=== PATIENT | female | born 1985 | race African-American/Black ===

== ENCOUNTER 2017-05-15 23:51 | Emergency (ER) | payer OTHER ==
[2017-05-16] MEDS ORDERED: PHENERGAN INJ 25 MG IM ONE (00:10)
--- NOTE | 2017-05-16 00:13 | DR.GENAD ---
HPI - PCP Primary Care Physician: nfd - Complaint/Symptoms Chief Complaint Doctors Comments: Nausea with vomitting, dairrhear x 2 days. No fever or chills. She had eaten some teresa claw on the morning of onset of her symptoms. She denies recent travel outside of this general area. Chief Complaint:: n/v/d - Nurses notes reviewed Nurses Notes Review: Yes - Source History Provided: Patient - Mode of Arrival Mode of Arrival: Ambulatory - Timing Onset of Chief Complaint: 05/15/17 PMH - PMH Past Medical History: Yes Past Medical History: Hypertension Past Surgical History: Yes Surgical History: - Family History History of Family Medical Conditions: Yes Family Medical History: Diabetes Mellitus, Cancer, [place], Hypertension - Social History Does patient currently use any type of tobacco product: Yes Have you used tobacco products in the last 12 months: Yes Type of Tobacco Use: Cigarettes Does any household member use tobacco: Yes Alcohol Use: None Do you use any recreational Drugs:: No Lives With: Family Lives Where: Home - infectious screening In the last 2 months have you had wt loss of >10#?: NO Have you had fever, night sweats or hemotysis?: No Have you traveled outside the country in the last 6 months?: No Isolation: Standard ROS - Review of Systems Constitutional: No Symptoms Reported Eyes: No Symptoms Reported ENTM: No Symptoms Reported Respiratoy: No Symptoms Reported Cardiovascular: No Symptoms Reported Gastrointestinal/Abdominal: Abdominal Pain (cramps in epigastric area), Diarrhea , Nausea, Vomiting Neurological: No Symptoms Reported Musculoskeletal: No Symptoms Reported Integumentary: No Symptoms Reported Hematologic/Lymphatic: No Symptoms Reported Endocrine: No Symptoms Reported Psychiatric: No Symptoms Reported PE - Vital Signs Vitals: Temperature 97.8 F Pulse Rate 109 Respiratory Rate 16 Blood Pressure [Right Arm] 153/87 Blood Pressure [Left Arm] 179/86 Blood Pressure 145/81 O2 Sat by Pulse Oximetry 97 - General Limitations: No Limitations General Appearance: Alert, In No Apparent Distress - Head Head Exam: Normal Inspection - Eyes Eye exam: Normal Appearance - ENT ENT Exam: Normal Exam - Neck Neck Exam: Normal Inspection - Chest Chest Inspection: Normal Inspection - Respiratory Respiratory Exam: Normal Lung Sounds Bilat - Cardiovascular Cardiovascular Exam: Regular Rate, Normal Rhythm - Abdominal Exam Abdominal Exam: Normal Inspection, Normal Bowel Sounds, Soft, Other (obese) - Extremities Extremities Exam: Normal Inspection - Back Back Exam: Normal Inspection - Neurologic Neurological Exam: Alert, Oriented X3 - Psychiatric Psychiatric Exam: Normal Affect, Normal Mood - Skin Skin Exam: Warm, Dry, Intact, Normal Color Course - Reevaluation 1st: Improved - Education/Counseling Education/Counseling: Patient, Family, Education Educated On: Treatment, Diagnosis, Prognosis, Needs for Follow Up ROR - Labs Reviewed Result Diagrams: 05/16/17 00:23 05/16/17 00:23 Laboratory: WBC 9.8 X10^3/uL (3.6-10.0) 05/16/17 00:23 RBC 5.02 X10^6/uL (3.5-5.4) 05/16/17 00:23 Hgb 12.5 g/dL (12.0-16.0) 05/16/17 00: Hct 38.6 % (36.0-47.0) 05/16/17 00:23 MCV 76.8 fL (80.0-100.0) L 05/16/17 00: MCH 24.9 pg (27.0-34.0) L 05/16/17 00:23 MCHC 32.4 g/dL (33.0-35.0) L 05/16/17 00:23 RDW 16.7 % (11.6-16.5) H 05/16/17 00:23 Plt Count 344 X10^3/uL (150.0-450.0) 05/16/17 00: Plt Count Comment Adequate (ADEQUATE) 05/16/17 00: MPV 7.7 fL (7.4-11.0) 05/16/17 00: Neut % 76.0 % (42.0-75.0) H 05/16/17 00:23 Lymph % 18.4 % (21.0-51.0) L 05/16/17 00:23 [place] % 5.0 % (0.0-13.0) 05/16/17 00: Eos % 0.2 % (0.9-2.9) L 05/16/17 00:23 Baso % 0.4 % (0.2-1.0) 05/16/17 00: Neut # 7.5 x10^3/uL (2.2-4.8) H 05/16/17 00:23 Lymph # 1.8 X10^3/uL (1.3-2.9) 05/16/17 00:23 [place] # 0.5 x10^3/uL (0.3-0.8) 05/16/17 00:23 Eos # 0.0 x10^3/uL (0.0-0.2) 05/16/17 00:23 Baso # 0.0 X10^3/uL (0.0-0.1) 05/16/17 00:23 Absolute Nucleated RBC 0.1 /100WBC 05/16/17 00:23 Plt Morphology Comment Normal (NORMAL) 05/16/17 00: RBC Morphology Normal (NORMAL) 05/16/17 00:23 Sodium 137 mmol/L (136-145) 05/16/17 00:23 Corrected Sodium TNP 05/16/17 00:23 Potassium 3.7 mmol/L (3.5-5.1) 05/16/17 00: Chloride 102 mmol/L (98-107) 05/16/17 00: Carbon Dioxide 24.2 mmol/L (21-32) 05/16/17 00:23 BUN 11 mg/dL (7-18) 05/16/17 00:23 Creatinine 0.83 mg/dL (0.55-1.02) 05/16/17 00:23 Est GFR (MDRD) Af Amer > 60 (>60) 05/16/17 00:23 Est GFR (MDRD) Non-Af > 60 (>60) 05/16/17 00:23 Glucose 100 mg/dL (65-99) H 05/16/17 00:23 Calcium 8.7 mg/dL (8.5-10.1) 05/16/17 00:23 Corrected Calcium TNP 05/16/17 00:23 Total Bilirubin 0.20 mg/dL (0.2-1.0) 05/16/17 00:23 AST 21 Units/L (15-37) 05/16/17 00:23 ALT 24 Units/L (12-78) 05/16/17 00:23 Alkaline Phosphatase 47 Units/L (46-116) 05/16/17 00:23 Total Protein 8.3 g/dL (6.4-8.2) H 05/16/17 00:23 Albumin 4.0 g/dL (3.4-5.0) 05/16/17 00:23 Globulin 4.3 g/dL (2.5-4.5) 05/16/17 00:23 Albumin/Globulin Ratio 0.9 Ratio (1.1-2.1) L 05/16/17 00:23 - Diagnosis Discharge Problem: Gastroenteritis - Discharge Plan Disposition: 01 HOME, SELF-CARE Condition: Stable - Follow ups/Referrals Follow ups/Referrals: NFD,None [Primary Care Provider] - 3 days - Instructions
[2017-05-16 00:15] VITALS: BP 145/81; BMI 53.2
[2017-05-16] MEDS ORDERED: PHENERGAN INJ 25 MG ONE (00:18)
[2017-05-16 00:39] LABS: BASOPHILS % (AUTO) 0.4 % (0.2-1.0); EOSINOPHILS % (AUTO) 0.2 % (0.9-2.9); HEMATOCRIT 38.6 % (36.0-47.0); HEMOGLOBIN 12.5 g/dL (12.0-16.0); LYMPHOCYTES # (AUTO) 1.8 X10^3/uL (1.3-2.9); LYMPHOCYTES % (AUTO) 18.4 % (21.0-51.0); MEAN CORPUSCULAR HEMOGLOBIN 24.9 pg (27.0-34.0); MEAN CORPUSCULAR HGB CONC 32.4 g/dL (33.0-35.0); MEAN CORPUSCULAR VOLUME 76.8 fL (80.0-100.0); MEAN PLATELET VOLUME 7.7 fL (7.4-11.0); MONOCYTES # (AUTO) 0.5 x10^3/uL (0.3-0.8); NEUTROPHILS # (AUTO) 7.5 x10^3/uL (2.2-4.8); PLATELET COUNT 344 X10^3/uL (150.0-450.0); RED BLOOD COUNT 5.02 X10^6/uL (3.5-5.4); RED CELL DISTRIBUTION WIDTH 16.7 % (11.6-16.5); WHITE BLOOD COUNT 9.8 X10^3/uL (3.6-10.0)
[2017-05-16 00:46] LABS: ALANINE AMINOTRANSFERASE 24 Units/L (12-78); ALKALINE PHOSPHATASE 47 Units/L (46-116); ASPARTATE AMINO TRANSFERASE 21 Units/L (15-37); BLOOD UREA NITROGEN 11 mg/dL (7-18); CALCIUM 8.7 mg/dL (8.5-10.1); CARBON DIOXIDE 24.2 mmol/L (21-32); CHLORIDE 102 mmol/L (98-107); CREATININE 0.83 mg/dL (0.55-1.02); SODIUM 137 mmol/L (136-145); TOTAL PROTEIN 8.3 g/dL (6.4-8.2); eGFR BLACK RACES > 60 (>60); eGFR NON BLACK RACES > 60 (>60)
[2017-05-16 00:58] LABS: PLATELET MORPHOLOGY COMMENT NORMAL (NORMAL)
== END 2017-05-16 01:20 | disposition home or self-care (01) ==
LOC: ER 23:51
DX: K52.89 Other specified noninfective gastroenteritis and colitis (principal)
CPT/HCPCS: 36415; 80053; 85025; 96372; 99282; 99283; J2550

== ENCOUNTER 2018-08-12 06:11 | Inpatient (IN) ==
[2018-08-12] MEDS ORDERED: ANCEF VIAL 1 GRAM IVP ONE (06:36)
[2018-08-12] MEDS ORDERED: D5 1/2 NS 1000 ML 1,000 ML IV SCH (06:36)
[2018-08-12] MEDS ORDERED: ANCEF 1 GRAM IV PREMIX* 1 G/50 ML BAG IV ONE ×2 (06:48→06:57)
[2018-08-12] MEDS ORDERED: LR 1000 ML IV 1,000 ML ONE (06:57)
[2018-08-12 07:09] LABS: URIC ACID 3.8 mg/dL (2.6-6.0)
[2018-08-12] MEDS ORDERED: DILAUDID INJ ONE (07:12)
[2018-08-12] MEDS ORDERED: MARCAINE SPINAL ONE ×2 (07:24→15:36)
[2018-08-12] MEDS ORDERED: D5 1/2 NS 1L W PITOCIN 20 UNITS/L 20 UNITS/1,000 ML BAG IV ONE (07:33)
[2018-08-12] MEDS ORDERED: NS 1000 ML 1,000 ML ONE ×2 (07:48→09:20)
[2018-08-12] MEDS ORDERED: FENTANYL INJ 100 mcg ONE ×2 (08:19→08:20)
[2018-08-12] MEDS ORDERED: NEO-SYNEPHRINE INJ IVP ONE (10:02)
[2018-08-12] MEDS ORDERED: MYLICON TAB 80 MG CHEW PO PRN (10:34)
[2018-08-12] MEDS ORDERED: ADACEL or BOOSTRIX TDaP VACCINE IM ONE (10:34)
[2018-08-12] MEDS ORDERED: BENADRYL INJ 50 MG VIAL IVP PRN ×2 (10:34→10:41)
[2018-08-12] MEDS ORDERED: NARCAN INJ IVP PRN (10:34)
[2018-08-12] MEDS ORDERED: D5 1/2 NS 1000 ML 1,000 ML with PITOCIN 20 UNITS IV SCH ×2 (10:34)
[2018-08-12] MEDS ORDERED: PERCOCET TAB 5/325 MG PO PRN (10:34)
[2018-08-12] MEDS ORDERED: REGLAN INJ 10 MG VIAL IVP PRN ×2 (10:34→10:41)
[2018-08-12] MEDS ORDERED: DILAUDID INJ IVP PRN (10:41)
[2018-08-12] MEDS ORDERED: ZOFRAN INJ 4 MG VIAL IVP PRN (10:41)
[2018-08-12] MEDS ORDERED: PHENERGAN INJ 25 MG IM PRN (10:41)
[2018-08-12 10:51] LABS: HEMATOCRIT 23.3 % (36.0-47.0); HEMOGLOBIN 7.4 g/dL (12.0-16.0)
[2018-08-12] MEDS: TORADOL 30 MG VIAL IVP PRN ×2 (12:37→23:09)
[2018-08-12] MEDS: ZOFRAN INJ 4 MG VIAL IVP PRN ×2 (12:46→23:09)
[2018-08-12] MEDS ORDERED: ZOFRAN INJ 4 MG VIAL ONE (15:36)
[2018-08-12] MEDS ORDERED: DIPRIVAN VIAL ONE (15:36)
[2018-08-12] MEDS ORDERED: PITOCIN ONE (15:36)
[2018-08-12] MEDS ORDERED: ULTANE GAS ONE (15:36)
[2018-08-12] MEDS ORDERED: XYLOCAINE 1 % (PLAIN) ONE (15:36)
[2018-08-12] MEDS ORDERED: NEO-SYNEPHRINE INJ ONE (15:36)
[2018-08-12] MEDS ORDERED: VERSED ONE (15:36)
[2018-08-12 16:35] LABS: HEMATOCRIT 23.1 % (36.0-47.0); HEMOGLOBIN 7.3 g/dL (12.0-16.0)
[2018-08-12] MEDS: ZANTAC PO SCH (20:11)
[2018-08-12] MEDS ORDERED: NORMODYNE TAB 200 MG PO SCH (21:00)
[2018-08-13 05:26] LABS: HEMATOCRIT 20.2 % (36.0-47.0)
[2018-08-13 05:45] LABS: HEMOGLOBIN 6.4 g/dL (12.0-16.0)
[2018-08-13] MEDS: TORADOL 30 MG VIAL IVP PRN (05:58)
[2018-08-13] MEDS ORDERED: BENADRYL INJ 50 MG VIAL IVP ONE (08:01)
[2018-08-13] MEDS ORDERED: TYLENOL 325 MG TAB PO ONE ×2 (08:02→12:24)
[2018-08-13] MEDS ORDERED: MOTRIN TAB 800 MG PO PRN (08:16)
[2018-08-13] MEDS: PRENATAL PLUS PO SCH (09:18)
[2018-08-13] MEDS: ZANTAC PO SCH ×2 (09:18→20:51)
[2018-08-13] MEDS: NORMODYNE TAB 200 MG PO SCH ×2 (09:18→20:53)
[2018-08-13] MEDS ORDERED: NS 250 ML IV 250 ML ONE ×2 (12:20→16:53)
[2018-08-13] MEDS: BACTROBAN CREAM TOP SCH ×2 (15:46→22:15)
[2018-08-13] MEDS: FERROUS GLUCONATE PO SCH ×2 (15:50→17:06)
[2018-08-13] MEDS: COLACE CAP 100 MG PO SCH ×2 (15:50→20:51)
[2018-08-13] MEDS: PERCOCET TAB 5/325 MG PO PRN ×2 (18:11→23:07)
[2018-08-13 22:54] LABS: HEMATOCRIT 21.5 % (36.0-47.0); HEMOGLOBIN 7.2 g/dL (12.0-16.0)
[2018-08-14] MEDS: PERCOCET TAB 5/325 MG PO PRN ×2 (04:01→10:00)
[2018-08-14] MEDS: FERROUS GLUCONATE PO SCH (06:26)
[2018-08-14] MEDS: BACTROBAN CREAM TOP SCH ×2 (06:26→08:30)
[2018-08-14] MEDS: COLACE CAP 100 MG PO SCH (08:29)
[2018-08-14] MEDS: NORMODYNE TAB 200 MG PO SCH (08:29)
[2018-08-14] MEDS: PRENATAL PLUS PO SCH (08:29)
[2018-08-14] MEDS: ZANTAC PO SCH (08:29)
[2018-08-14 12:43] VITALS: BP 132/75
== END 2018-08-14 13:00 | disposition home or self-care (01) | DRG 784 ==
LOC: LD 06:11 → MED/SURG 10:51
PROVIDERS: ADMIT Specialist; ATTEND Specialist
DX: O99.013 Anemia complicating pregnancy, third trimester; Z23 Encounter for immunization; Z3A.38 38 weeks gestation of pregnancy; Z30.2 Encounter for sterilization; O10.013 Pre-existing essential hypertension complicating pregnancy, third trimester; Z37.0 Single live birth; D50.8 Other iron deficiency anemias; O34.211 Maternal care for low transverse scar from previous cesarean delivery; Z01.818 Encounter for other preprocedural examination; N85.8 Other specified noninflammatory disorders of uterus
CPT/HCPCS: 36415; 80048; 81001; 83615; 84450; 84460; 84550; 85014; 85018; 85025; 85384; 85610; 85730; 86592; 86850; 86900; 86901; 86922; 87086; 90715; A4216; A4222; P9016; S0197; J0690; J1170; J1200; J1885; J2250; J2370; J2405; J2590; J2704; J3010; J3490; J7030; J7050; J7120; S5010